=== PATIENT | female | born 1985 | race African-American/Black ===

== ENCOUNTER 2017-09-08 15:16 | Emergency (ER) | payer OTHER ==
[2017-09-08 15:21] VITALS: TEMP 98.7; BMI 26.1
--- NOTE | 2017-09-08 16:56 | PDOC ---
History of Present Illness - General History Source: Patient Exam Limitations: No Limitations - History of Present Illness Initial Comments: 09/08/17 17:00 The patient is a 32 year old female, with a significant past medical history of asthma, seizures and GERD, who presents to the emergency department complaining of shortness of breath onset today. She reports that this shortness of breath was sudden and occurred at work. She notes that she felt fatigue today but denies any kind of illness. The patient was given Solumedrol and a couple of breathing treatments at her job prior to presenting to the ED and notes that she felt much better afterwards. On presentation that the patient denies any kind of shortness of breath. The patient denies chest pain, headache or dizziness. Denies fever, chills, nausea, vomiting, diarrhea and constipation. Denies dysuria, frequency, urgency and hematuria. LMP: Currently Allergies: Quinine Past surgical history: Appendectomy Social History: No alcohol, tobacco or drug use reported <Morris Livingston - Last Filed: 09/08/17 17:00> <Tiara Alcantara - Last Filed: 09/08/17 18:18> - General Chief Complaint: Asthma Stated Complaint: Asthma Time Seen by Provider: 09/08/17 16:26 Past History <Morris Livingston - Last Filed: 09/08/17 17:00> - Past Medical History Asthma: Yes COPD: No GI Disorders: Yes (GERD) Seizures: Yes - Surgical History Appendectomy: Yes - Immunization History Immunization Up to Date: Yes - Suicide/Smoking/Psychosocial Hx Smoking Status: No Smoking History: Never smoked Have you smoked in the past 12 months: No Number of Cigarettes Smoked Daily: 0 Information on smoking cessation initiated: No Hx Alcohol Use: No Drug/Substance Use Hx: No Substance Use Type: None <Tiara Alcantara - Last Filed: 09/08/17 18:18> - Past Medical History Allergies/Adverse Reactions: Allergies Allergy/AdvReac Type Severity Reaction Status Date / Time quinine [Quinine] Allergy Intermediate Rash Verified 09/08/17 15:17 Home Medications: Ambulatory Orders Albuterol Sulfate Inhaler - [Ventolin HFA Inhaler -] 1 - 2 inh PO Q4H PRN #1 inhaler 09/08/17 Inhaler, Assist Devices [Space Chamber Plus] 1 each MC DAILY PRN #1 spacer 09/08 predniSONE [Deltasone -] 40 mg PO DAILY #8 tablet 09/08/17 Review of Systems - Review of Systems Able to Perform ROS?: Yes Comments:: 09/08/17 17:00 GENERAL/CONSTITUTIONAL: No fever or chills. No weakness. HEAD, EYES, EARS, NOSE AND THROAT: No change in vision. No ear pain or discharge. No sore throat. GASTROINTESTINAL: No nausea, vomiting, diarrhea or constipation. GENITOURINARY: No dysuria, frequency, or change in urination. CARDIOVASCULAR: (+) Shortness of breath. No chest pain. RESPIRATORY: No cough, wheezing, or hemoptysis. MUSCULOSKELETAL: No joint or muscle swelling or pain. No neck or back pain. SKIN: No rash NEUROLOGIC: No headache, vertigo, loss of consciousness, or change in strength/ sensation. ENDOCRINE: No increased thirst. No abnormal weight change. HEMATOLOGIC/LYMPHATIC: No anemia, easy bleeding, or history of blood clots. ALLERGIC/IMMUNOLOGIC: No hives or skin allergy. <Morris Livingston - Last Filed: 09/08/17 17:00> *Physical Exam - Vital Signs Last Vital Signs Temp Pulse Resp BP Pulse Ox 98.7 F 83 20 121/67 96 09/08/17 15:18 09/08/17 15:18 09/08/17 15:18 09/08/17 15:18 09/08/17 15:18 - Physical Exam Comments: 09/08/17 17:00 Constitutional: Awake, alert, oriented. No acute distress. Head: Normocephalic. Atraumatic Eyes: PERRL. EOMI. Conjunctivae are not pale. ENT: Mucous membranes are moist and intact. Posterior pharynx without exudates or erythema. Uvula midline. Neck: Supple. Full ROM. No lymphadenopathy. Cardiovascular: Regular rate. Regular rhythm. S1, S2 regular. Distal pulses are 2+ and symmetric. Pulmonary/Chest: No evidence of respiratory distress. Clear to auscultation bilaterally No wheezing, rales or rhonchi. Abdominal: Soft and non-distended. There is no tenderness. No rebound, guarding or rigidity. No organomegaly. No palpable masses. Good bowel sounds. Back: No CVA tenderness. Musculoskeletal: No edema. No cyanosis. No clubbing. Full range of motion in all extremities. Nocalf tenderness. Radial/pedal pulses are intact and 2+ bilaterally Skin: Skin is warm and dry. No petechiae. No purpura. Neurological: Alert and oriented to person, place, and time. Cranial nerves II -XII are grossly intact. Normal speech. Strength is grossly symmetric. No sensory deficits. Psychiatric: Good eye contact. Normal interaction, affect and behavior. <Morris Livingston - Last Filed: 09/08/17 17:00> - Vital Signs Last Vital Signs Temp Pulse Resp BP Pulse Ox 98.7 F 83 20 121/67 96 09/08/17 15:18 09/08/17 15:18 09/08/17 15:18 09/08/17 15:18 09/08/17 15:18 <Tiara Alcantara - Last Filed: 09/08/17 18:18> Medical Decision Making - Medical Decision Making 09/08/17 18:16 32yo female with hx of RAD with sob today after walking outside -received IM solumedrol and albuterol x 2 and all symptoms resolved -pulse ox 99 on RA while in the room -no conversational dyspnea -told she may have asthma in the past, but never followed up with Dr. Leslie or a miter sawyer for PFT -no recent illness -no cough, f/c/rhinorrhea/sore throat -pt is nontoxic in appearance -pt able to ambulate without sob. no cp -no wheezing now -pulse ox while walking 99 RA -stable for d/c to home -will give prednisone for RAD and albuterol -recommended outpt follow up with pulm for further eval and poss pft. answered all questions <Tiara Alcantara - Last Filed: 09/08/17 18:18> *DC/Admit/Observation/Transfer - Attestations Scribe Attestion: 09/08/17 17:01 Documentation prepared by Morris Livingston, acting as medical lab technologist for Tiara Alcantara DO <Morris Livingston - Last Filed: 09/08/17 17:00> - Discharge Dispostion Admit: No - Attestations Physician Attestion: 09/08/17 16:56 I, Dr. Tiara Alcantara, DO, attest that this document has been prepared under my direction and personally reviewed by me in its entirety. I further attest, that it accurately reflects all work, treatment, procedures and medical decision -making performed by me. <Tiara Alcantara - Last Filed: 09/08/17 18:18> Diagnosis at time of Disposition: Reactive airway disease - Discharge Dispostion Disposition: HOME Condition at time of disposition: Stable - Prescriptions Prescriptions: Albuterol Sulfate Inhaler - [Ventolin HFA Inhaler -] 1 - 2 inh PO Q4H PRN #1 inhaler PRN Reason: Shortness Of Breath Inhaler, Assist Devices [Space Chamber Plus] 1 each MC DAILY PRN #1 spacer PRN Reason: Wheezing predniSONE [Deltasone -] 40 mg PO DAILY #8 tablet - Referrals Referrals: Momo Leslie MD [Primary Care Provider] - Henry Watts MD [Staff Physician] - Mike Rahman MD [Staff Physician] - Tracy Staley MD [Staff Physician] - January Garland MD [Staff Physician] - - Patient Instructions Printed Discharge Instructions: DI for Reactive Airway Disease-Adult Additional Instructions: Please start the steroids tomorrow. Please take all meds as prescribed. Please make an appointment to see the miter sawyer. Please return to the ED with any further complaints or concerns. - Post Discharge Activity Forms/Work/School Notes: Back to Work
[2017-09-08 17:15] VITALS: BP 109/59; PULSE 88
== END 2017-09-08 17:15 | disposition home or self-care (01) ==
LOC: JER 15:16
DX: J45.909 Unspecified asthma, uncomplicated (principal); K21.9 Gastro-esophageal reflux disease without esophagitis
CPT/HCPCS: 99282-25

== ENCOUNTER 2019-12-31 19:48 | Emergency (ER) | payer BC, OTHER ==
[2019-12-31] MEDS ORDERED: SODIUM CHLORIDE 1,000 ML IV STA (19:53)
[2019-12-31] MEDS ORDERED: ONDANSETRON 4 MG/2 ML VIAL IVPUSH ONE (19:53)
[2019-12-31 19:54] VITALS: BMI 25.4
--- NOTE | 2019-12-31 19:54 | PDOC ---
Rapid Medical Evaluation Time Seen by Provider: 12/31/19 19:51 Medical Evaluation: Allergies Allergy/AdvReac Type Severity Reaction Status Date / Time quinine [Quinine] Allergy Intermediate Rash Verified 09/08/17 15:17 12/31/19 19:51 Pt presents for hyperemisis in . Currently 10 weeks preg[address] Gonzalez for IV hydration. LMP 10/23 Exam: NAD, RRR, Breathing comfortably on room air Orders: labs, IVF, meds Pt to proceed to the ER for further evaluation Discharge Disposition - Diagnosis Hyperemesis - Referrals - Patient Instructions - Post Discharge Activity
[2019-12-31 19:55] VITALS: TEMP 98.6
--- NOTE | 2019-12-31 21:25 | PDOC ---
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
--- NOTE | 2019-12-31 22:13 | PDOC ---
History of Present Illness - General Chief Complaint: Nausea/Vomiting Stated Complaint: 10 WEEKS Time Seen by Provider: 12/31/19 19:51 - History of Present Illness Initial Comments: HPI Pt is a 34yo F with PMH asthma, PUD who presents from OB for n/v for IV hydration. Pt reports a history of hyperemesis with her first . States that she has had n/v since she was 7 weeks , saw her OB who perscribed her Zofran, which initially relieved symptoms. States that recently she has had to increase to two tabs of SL Zofran q8h, with some improvement in symptoms. States that she has 2 episodes of NBNB emesis per day, once in am, once in PM. Has been able to tolerate PO intake, however states that she has had decreased intake. Reports associated increased fatigue and weakness during the last 3 weeks. Denies sick contacts, recent travel, COVID PCP [facility]: Lisa PMH: see above PSH: appendectomy, percutaneous discectomy Meds: vitamins, zofran Allergies: quinine Review of Systems CONSTITUTIONAL: reports generalized weakness,denies fever, chills, diaphoresis, malaise, loss of appetite HEENT:denies rhinorrhea, nasal congestion, sore throat CARDIOVASCULAR:reports lightheadedness with sitting to standing; denies chest pain, palpitations RESPIRATORY:denies cough, shortness of breath, dyspnea with exertion GASTROINTESTINAL: reports nausea, vomiting; denies abdominal pain, diarrhea, constipation, melena, hematochezia GENITOURINARY:reports increased frequency; denies dysuria, urgency, hesitancy, hematuria MUSCULOSKELETAL:denies myalgia, arthralgia HEMATOLOGIC/IMMUNOLOGIC:denies easy bleeding, easy bruising ENDOCRINE: denies unexplained weight gain, unexplained weight loss NEUROLOGIC:denies headache, loss of consciousness, focal weakness or paresthesias, dizziness, unsteady gait, mental status changes SKIN:denies rash, itching, pallor Physical Exam General: awake, alert, oriented, in no acute distress, well developed, well nourished Head: normocephalic, atraumatic Eyes: PERRL, EOMI, anicteric sclera, conjunctiva clear ENT: hearing grossly normal, oropharynx clear without exudates. No nasal congestion Moist mucous membranes Neck: supple, normal ROM Lung: equal breath sounds b/l, CTA b/l, no crackles, wheezes; no distress, speaks full sentences Heart: RRR, normal S1, S2, no murmurs appreciated, capillary refill <2sec Abdomen: soft, non tender, normoactive bowel sounds, no guarding, rebound, masses Extremities: no edema, no erythema or tenderness, DP/PT pulses 2+ and symmetric Neuro: CN2-12 grossly intact, moves all extremities, normal speech, sensation intact Skin: normal turgor; warm, dry, no rashes or lesions noted MDM Pt is a 34yo F with PMH asthma, PUD who presents from OB for n/v for IV hydration. DDx including but not limited to: UTI, electrolyte abnormality Workup: labs TX: 1L Lopez GARNER Spoke with Dr. Gonzalez to clarify her script, patient does not need to be admitted given that her electrolytes, UA, and CBC were WNL. Advised that we do not need to send patient anti-emetics. 12/31/19 22:54 Labs: glucosuria, no leukocytosis, no anemia Pt states that she still has mild nausea Will give 1L LR and 10mg Reglan Pt stable for discharge. improvement of nausea. Informed of all lab results. Given follow up instructions and strict return precautions. Patient expressed understanding and agree to plan Disposition Discharge Past History - Medical History Allergies/Adverse Reactions: Allergies Allergy/AdvReac Type Severity Reaction Status Date / Time quinine [Quinine] Allergy Intermediate Rash Verified 12/31/19 19:53 Home Medications: Ambulatory Orders Albuterol Sulfate Inhaler - [Ventolin HFA Inhaler -] 1 - 2 inh PO Q4H PRN #1 inhaler 09/08/17 Inhaler, Assist Devices [Space Chamber Plus] 1 each MC DAILY PRN #1 spacer 09/08/17 predniSONE [Deltasone -] 40 mg PO DAILY #8 tablet 09/08/17 Asthma: Yes COPD: No GI Disorders: Yes (GERD) Seizures: Yes - Surgical History Appendectomy: Yes - Reproductive History Is Patient Now?: Yes - Immunization History Immunization Up to Date: Yes - Psycho-Social/Smoking History Smoking Status: No Smoking History: Never smoked Have you smoked in the past 12 months: No Number of Cigarettes Smoked Daily: 0 - Substance Abuse Hx (Audit-C & DAST Scrn) How often the patient has a drink containing alcohol: Never Score: In Men: 4 or > Positive; In Women: 3 or > Positive: 0 Screen Result (Pos requires Nsg. Audit-10AR): Negative In the last yr the pt used illegal drug/Rx for NonMed reason: No Score: Yes response is considered Positive: 0 Screen Result (Positive result requires Nsg. DAST-10): Negative *Physical Exam - Vital Signs Last Vital Signs Temp Pulse Resp BP Pulse Ox 98.6 F 82 18 114/60 100 12/31/19 19:55 12/31/19 19:51 12/31/19 19:51 12/31/19 19:51 12/31/19 19:51 ED Treatment Course - LABORATORY CBC & Chemistry Diagram: 12/31/19 21:56 12/31/19 21:56 - Medications Given in the ED: ED Medications Discontinued Medications Generic Name Dose Route Start Last Admin Trade Name Freq PRN Reason Stop Dose Admin Sodium Chloride 1,000 mls @ 1,000 mls/hr 12/31/19 19:53 12/31/19 20:30 Normal Saline - IV 12/31/19 20:52 1,000 mls/hr ASDIR STA Administration Ondansetron HCl 4 mg 12/31/19 19:53 12/31/19 21:55 Zofran Injection IVPUSH 12/31/19 19:54 4 mg ONCE ONE Administration Discharge - Discharge Information Problems reviewed: Yes Clinical Impression/Diagnosis: Nausea and vomiting during Condition: Stable Disposition: HOME - Admission No - Follow up/Referral Referrals: Selvin Lieberman MD [Primary Care Provider] - Vivienne Gonzalez MD [Staff Physician] - - Patient Discharge Instructions Patient Printed Discharge Instructions: DI for Hyperemesis Gravidarum Additional Instructions: You came into the ER nausea and vomiting, sent by your OB, Dr. Gonzalez for IV fluids. In the ED, you were evaluated with blood work, urinalysis. Your blood work and urinalysis were normal. You do not appear to be an acute need for immediate hospitalization. You were advised to follow up with your OB in the next 1-2 weeks or as needed. Come back to the ER immediately with any new or worsening concerns, such as high fevers, inability to tolerate oral intake, persistent and severe vomiting. Thank you for coming to the [facility] ER. We hope you feel better soon! - Post Discharge Activity
[2019-12-31 22:49] LABS: BASO % 0.6 % (0-2.0); EOS % 1.7 % (0-4.5); HEMATOCRIT 37.5 % (32.4-45.2); HEMOGLOBIN 12.8 GM/dL (10.7-15.3); LYMPH % 31.9 % (8-40); MCH 30.9 pg (25.7-33.7); MCHC 34.1 g/dl (32.0-36.0); MEAN CELL VOLUME 90.6 fl (80-96); MEAN PLT VOLUME 8.2 fl (7.5-11.1); MONO % 6.2 % (3.8-10.2); NEUT % 59.6 % (42.8-82.8); PLATELET COUNT 255 K/MM3 (134-434); RBC 4.14 M/mm3 (3.60-5.2); RDW 12.5 % (11.6-15.6); WHITE BLOOD COUNT 8.6 K/mm3 (4.0-10.0)
[2019-12-31 22:51] LABS: PH,URINE 5.5 (5.0-8.0); URINE APPEARANCE CLOUDY; URINE BILIRUBIN NEGATIVE (NEGATIVE); URINE COLOR YELLOW; URINE GLUCOSE (UA) 3+ (NEGATIVE); URINE KETONE NEGATIVE (NEGATIVE); URINE LEUK ESTERASE NEGATIVE (NEGATIVE); URINE NITRITE NEGATIVE (NEGATIVE); URINE PROTEIN NEGATIVE (NEGATIVE); URINE UROBILINOGEN 0.2 mg/dL (0.2-1.0)
[2019-12-31 23:28] LABS: ALBUMIN 3.4 g/dl (3.4-5.0); BILIRUBIN,TOTAL 0.2 mg/dL (0.2-1); BLOOD UREA NITROGEN 8.1 mg/dL (7-18); CALCIUM 8.8 mg/dL (8.5-10.1); POTASSIUM 3.8 mmol/L (3.5-5.1); TOT PROT 7.2 g/dl (6.4-8.2)
[2019-12-31] MEDS ORDERED: METOCLOPRAMIDE HCL INJECTION 10 MG/2 ML VIAL IVPUSH ONE (23:33)
[2019-12-31] MEDS ORDERED: METOCLOPRAMIDE HCL INJECTION 10 MG/2 ML VIAL ONE (23:38)
[2019-12-31] MEDS ORDERED: LACTATED RINGERS SOLUTION 1000 ML INFUS.BAG IV ONE (23:45)
[2020-01-01 00:19] LABS: CREATININE 0.9 mg/dL (0.55-1.3)
[2020-01-01 01:06] VITALS: BP 103/65; PULSE 81
== END 2020-01-01 01:07 | disposition home or self-care (01) ==
LOC: JER 19:48
PROC: 3E033GC Introduction of Other Therapeutic Substance into Peripheral Vein, Percutaneous Approach (ICD-10-PCS; principal; 2019-12-31)
PROC: 3E0337Z Introduction of Electrolytic and Water Balance Substance into Peripheral Vein, Percutaneous Approach (ICD-10-PCS; 2019-12-31)
DX: O21.1 Hyperemesis gravidarum with metabolic disturbance (principal)
CPT/HCPCS: 36415; 80053; 81003; 85025; 87086; 99284-25

== ENCOUNTER 2020-07-15 17:30 | Inpatient (IN) | payer BC, OTHER ==
[2020-07-15 18:34] VITALS: BMI 32.4
[2020-07-15 19:45] LABS: BASO % 0.4 % (0-2.0); EOS % 0.6 % (0-4.5); HEMATOCRIT 36.8 % (32.4-45.2); HEMOGLOBIN 12.9 GM/dL (10.7-15.3); MCH 32.7 pg (25.7-33.7); MCHC 34.9 g/dl (32.0-36.0); MEAN CELL VOLUME 93.7 fl (80-96); MEAN PLT VOLUME 8.7 fl (7.5-11.1); MONO % 7.6 % (3.8-10.2); NEUT % 68.4 % (42.8-82.8); PLATELET COUNT 216 K/MM3 (134-434); RBC 3.93 M/mm3 (3.60-5.2); RDW 14.1 % (11.6-15.6); WHITE BLOOD COUNT 10.2 K/mm3 (4.0-10.0)
[2020-07-15 20:05] LABS: INR 0.91 (0.83-1.09); PROTHROMBIN TIME (PATIENT) 11.2 SEC (9.7-13.0)
[2020-07-15 20:08] LABS: ACTIVATED PTT 23.8 SECONDS (25.2-36.5)
[2020-07-15 20:11] LABS: CALCIUM 9.3 mg/dL (8.5-10.1); POTASSIUM 4.1 mmol/L (3.5-5.1)
[2020-07-15 20:13] LABS: BLOOD UREA NITROGEN 9.9 mg/dL (7-18)
[2020-07-15 20:16] LABS: CREATININE 0.8 mg/dL (0.55-1.3)
[2020-07-15] MEDS: ELECTROLYTE-148 SOLN 1,000 ML IV SCH (20:30)
[2020-07-15] MEDS ORDERED: DINOPROSTONE 10 MG VAGINAL SUPPOSITORY VG ONE (21:06)
[2020-07-16] MEDS: ELECTROLYTE-148 SOLN 1,000 ML IV SCH ×3 (03:45→21:45)
[2020-07-16] MEDS ORDERED: OXYTOCIN 30 UNITS in 0.9% NS 30 UNIT/500 ML INFUS.BAG IVPB ONE (09:44)
[2020-07-16] MEDS: OXYTOCIN 30 UNITS in 0.9% NS 30 UNIT/500 ML INFUS.BAG IVPB SCH (10:00)
[2020-07-16] MEDS ORDERED: FENTANYL/BUPIVACAINE/NS/PF - PCEA - 50 ML DISP.SYRIN EP ONE ×2 (16:29→21:09)
[2020-07-16] MEDS ORDERED: PCA PUMP NR ONE (16:29)
[2020-07-16] MEDS ORDERED: BUPIVACAINE HCL/PF 0.25% (2.5MG/ML) 10 ML VIAL ONE ×2 (16:43→21:49)
[2020-07-16] MEDS: FENTANYL/BUPIVACAINE/NS/PF - PCEA - 50 ML DISP.SYRIN EP SCH (17:15)
[2020-07-16] MEDS ORDERED: NALOXONE HCL 0.4 MG/ML VIAL IVPUSH PRN (17:21)
[2020-07-16] MEDS ORDERED: OXYTOCIN 20 UNITS in 0.9% NS 20 UNIT/1,000 ML INFUS.BAG IV ONE (23:27)
[2020-07-17] MEDS ORDERED: FENTANYL/BUPIVACAINE/NS/PF - PCEA - 50 ML DISP.SYRIN EP ONE (00:46)
[2020-07-17] MEDS: OXYTOCIN 20 UNITS in 0.9% NS 20 UNIT/1,000 ML INFUS.BAG IV SCH (02:25)
[2020-07-17] MEDS ORDERED: METHYLERGONOVINE MALEATE 0.2 MG/1 ML AMP IM PRN (02:31)
[2020-07-17] MEDS ORDERED: BENZOCAINE 28 GM HEMORRHOIDAL OINTMENT RC PRN (02:31)
[2020-07-17] MEDS ORDERED: WITCH HAZEL 50% (TUCKS) 40 PAD/JAR PAD TP PRN (02:31)
[2020-07-17] MEDS ORDERED: BENZOCAINE 20% 57 GM BOTTLE TP PRN (02:31)
[2020-07-17] MEDS ORDERED: BISACODYL 10 MG SUPP.RECT PR PRN (02:31)
[2020-07-17 02:58] LABS: CORD BASE EXCESS -4.4 mmol/L (0-2); CORD PCO2 57.6 mmHg (30-78); CORD pH 7.237 (7.14-7.44)
[2020-07-17 02:59] LABS: CORD BASE EXCESS -2.1 mmol/L (0-2); CORD PCO2 45.7 mmHg (30-78); CORD pH 7.338 (7.14-7.44)
[2020-07-17] MEDS ORDERED: IBUPROFEN 600 MG TABLET (FP) PO ONE (03:44)
[2020-07-17] MEDS ORDERED: ACETAMINOPHEN 325 MG TABLET (FP) ONE (03:44)
[2020-07-17] MEDS: IBUPROFEN 600 MG TABLET (FP) PO PRN ×4 (03:45→23:43)
[2020-07-17] MEDS: ACETAMINOPHEN 325 MG TABLET (FP) PO PRN ×4 (03:45→23:42)
[2020-07-17] MEDS ORDERED: OXYTOCIN 20 UNITS in 0.9% NS 20 UNIT/1,000 ML INFUS.BAG IV ONE (04:25)
[2020-07-17] MEDS: OXYTOCIN 30 UNITS in 0.9% NS 30 UNIT/500 ML INFUS.BAG IVPB SCH (23:41)
[2020-07-17] MEDS: FENTANYL/BUPIVACAINE/NS/PF - PCEA - 50 ML DISP.SYRIN EP SCH (23:41)
[2020-07-17] MEDS: ELECTROLYTE-148 SOLN 1,000 ML IV SCH (23:42)
[2020-07-18] MEDS: ACETAMINOPHEN 325 MG TABLET (FP) PO PRN (06:14)
[2020-07-18] MEDS: IBUPROFEN 600 MG TABLET (FP) PO PRN (06:16)
[2020-07-18] MEDS: OXYTOCIN 20 UNITS in 0.9% NS 20 UNIT/1,000 ML INFUS.BAG IV SCH (06:17)
[2020-07-18 08:38] LABS: BASO % 0.3 % (0-2.0); EOS % 1.1 % (0-4.5); HEMOGLOBIN 10.3 GM/dL (10.7-15.3); LYMPH % 26.2 % (8-40); MCH 32.5 pg (25.7-33.7); MCHC 34.2 g/dl (32.0-36.0); MEAN CELL VOLUME 95.1 fl (80-96); MEAN PLT VOLUME 8.7 fl (7.5-11.1); MONO % 6.1 % (3.8-10.2); NEUT % 66.3 % (42.8-82.8); PLATELET COUNT 151 K/MM3 (134-434); RBC 3.16 M/mm3 (3.60-5.2); RDW 14.3 % (11.6-15.6); WHITE BLOOD COUNT 12.4 K/mm3 (4.0-10.0)
[2020-07-18 11:16] VITALS: BP 126/77; PULSE 76; TEMP 97.8
== END 2020-07-18 15:05 | disposition home or self-care (01) | DRG 807 ==
LOC: JLDR 17:30 → J3W 07-17 04:31
PROVIDERS: ADMIT Obstetrics & Gynecology; ATTEND Obstetrics & Gynecology
PROC: 10E0XZZ Delivery of Products of Conception, External Approach (ICD-10-PCS; principal; 2020-07-17)
DX: O41.03X0 Oligohydramnios, third trimester, not applicable or unspecified (principal); Z37.0 Single live birth; O99.214 Obesity complicating childbirth; Z3A.38 38 weeks gestation of pregnancy
CPT/HCPCS: 36415; 36600; 59409; 80048; 82803; 85025; 85610; 85730; 86780; 86850; 86900; 86901; C9803; U0003